=== PATIENT | male | born 1990 | race Two or more races ===

== ENCOUNTER 2017-10-23 14:50 | Emergency (ER) | payer BC ==
--- NOTE | 2017-10-23 15:22 | EDM.PDOC ---
ED HPI GENERAL MEDICAL PROBLEM - General Chief Complaint: ENT Problem Stated Complaint: NOSE INJURY Time Seen by Provider: 10/23/17 15:15 Source of Information: Reports: Patient History Limitations: Reports: No Limitations - History of Present Illness INITIAL COMMENTS - FREE TEXT/NARRATIVE: 27-year-old male presents for evaluation and treatment and injury to the nose. Injury occurred about one half prior to arrival in the ER. Patient is plain Basketball. States that a another player hit him in the face with an open palm. He reports the nose bled initially but is controlled upon arrival to the ER. He is denying any other trauma. No head trauma. No headache, nausea or vomiting. He denies any pain to the orbits. Patient reports he received has broken his nose in the past. Has not seen ear, nose and throat for his nasal bone injury. Reports he is previously had trouble breathing on the left side of his nose but after the trauma today states this has since improved. Onset: Today Location: Reports: Face Nose Pain Score (Numeric/FACES): 1 - Related Data Allergies Allergy/AdvReac Type Severity Reaction Status Date / Time No Known Allergies Allergy Verified 10/23/17 15:11 Home Meds: Home Meds . [No Known Home Meds] 10/23/17 [History] Past Medical History HEENT History: Reports: Other (See Below) Other HEENT History: fractured nose Social & Family History - Tobacco Use Smoking Status *Q: Never Smoker - Caffeine Use Caffeine Use: Reports: Coffee, Energy Drinks - Recreational Drug Use Recreational Drug Use: No ED ROS ENT - Review of Systems Review Of Systems: See Below HEENT: Reports: Nosebleed, Nose Pain GI/Abdominal: Denies: Nausea, Vomiting Musculoskeletal: Denies: Neck Pain Neurological: Denies: Headache ED EXAM, ENT - Physical Exam Exam: See Below Exam Limited By: No Limitations General Appearance: Alert, WD/WN, No Apparent Distress Eye Exam: Bilateral Eye: EOMI, Normal Inspection, PERRL Ears: Normal External Exam Nose: Nasal Deformity, Nasal Swelling, Nasal Tenderness (right nasal bone), Septal Deformity (deviation to the left). No: Septal Hematoma, Active Bleeding Mouth/Throat: Normal Inspection, Normal Oropharynx, Normal Teeth Head: Atraumatic, Normocephalic, Facial Swelling (nose). No: Facial Ecchymosis , Sinus Tenderness Neck: Normal Inspection Respiratory/Chest: No Respiratory Distress, Lungs Clear, Normal Breath Sounds Cardiovascular: Normal Peripheral Pulses, Regular Rate, Rhythm, No Murmur Neurological: Alert, Oriented, Normal Cognition Psychiatric: Normal Affect, Normal Mood Skin: Warm, Dry, Normal Color. No: Ecchymosis Course - Vital Signs Last Recorded V/S: Last Vital Signs Temp 98.9 F 10/23/17 15:10 Pulse 85 10/23/17 15:10 Resp 20 10/23/17 15:10 BP 131/90 10/23/17 15:10 Pulse Ox 98 10/23/17 15:10 - Orders/Labs/Meds Orders: Active Orders 24 hr Category Date Time Status Nasal Bone Min 3V [CR] Stat Exams 10/23/17 15:22 Taken - Radiology Interpretation Free Text/Narrative:: X-ray of the nasal bones shows no fracture of the nasal bone. Deviated septum with likely break. Formal radiology read pending. - Re-Assessments/Exams Free Text/Narrative Re-Assessment/Exam: 10/23/17 16:34 I reviewed the x-ray with the patient. I am recommending follow-up with ear, nose and throat is his quite a deviated septum. Possible he re broke his septum today. Recommend follow-up with them. In the meantime recommend ice for control of the swelling. Discharge instructions as documented. Departure - Departure Time of Disposition: 16:40 Disposition: Home, Self-Care 01 Condition: Good Clinical Impression: Deviated nasal septum, Fracture of nasal septum - Discharge Information *PRESCRIPTION DRUG MONITORING PROGRAM REVIEWED*: No *COPY OF PRESCRIPTION DRUG MONITORING REPORT IN PATIENT GISELLA: No Instructions: Deviated Septum, Nasal Fracture Referrals: PCP,None [Primary Care Provider] - Dewey Horvath MD [Ordering Only Provider] - Forms: ED Department Discharge Additional Instructions: Ice the nose as much as possible. [id number] Tylenol or Motrin as needed for pain. Follow up with ear nose and throat this week. Recommend Dr. Horvath or Dr. Chavez in [place]. Call [phone] Horvath. Call . Avoid activities that could cause reinjury to the nose. Please return to the ER if your symptoms change or worsen. - My Orders Last 24 Hours: My Active Orders 10/23/17 15:22 Nasal Bone Min 3V [CR] Stat - Assessment/Plan Last 24 Hours: My Active Orders 10/23/17 15:22 Nasal Bone Min 3V [CR] Stat
== END 2017-10-23 16:50 | disposition home or self-care (01) ==
LOC: JD.ED 14:50
DX: S02.2XXA Fracture of nasal bones, initial encounter for closed fracture (principal); J34.2 Deviated nasal septum; W50.0XXA Accidental hit or strike by another person, initial encounter; Y93.67 Activity, basketball
CPT/HCPCS: 70160; 99283; 99284

== ENCOUNTER 2017-10-25 21:25 | Emergency (ER) | payer BC ==
--- NOTE | 2017-10-25 22:22 | EDM.PDOC ---
ED HPI GENERAL MEDICAL PROBLEM - General Chief Complaint: Head Injury Stated Complaint: HIT IN NOSE WITH BASKETBALL DISORRIENTED CONFUSED Time Seen by Provider: 10/25/17 21:41 Source of Information: Reports: Patient History Limitations: Reports: No Limitations - History of Present Illness INITIAL COMMENTS - FREE TEXT/NARRATIVE: Patient is a 27-year-old male who presents ED complaining of confusion, short- term memory loss, and feeling foggy at times. States he was hit in the nose while playing basketball this past Tuesday. He was evaluated in ED and x-ray of his nose obtained. He was diagnosed with a nasal fracture. Patient states later that evening he became nauseated and had a 2 episodes of emesis with a headache. States the headache and nausea improved. Does not recall all events that took place on Tuesday. States yesterday he had no significant symptoms. Just a faint headache. Today he went to work and noted there was some times where during conversation he would forget what he was talking about. He's only had a slight headache today. He's worked out the last 2 days with no increase headache noted. There's been no vision changes, nausea vomiting, focal neurological deficits, gait after maladies, or any additional complaints. He is concerned he has a concussion. Patient notes only 1 concussion in the past. That episode was more severe. face/nose Pain Score (Numeric/FACES): 1 - Related Data Allergies Allergy/AdvReac Type Severity Reaction Status Date / Time No Known Allergies Allergy Verified 10/25/17 21:39 Home Meds: Home Meds . [No Known Home Meds] 10/23/17 [History] Past Medical History - Past Health History Medical/Surgical History: Denies Medical/Surgical History HEENT History: Reports: Other (See Below) Other HEENT History: fractured nose Social & Family History - Family History Family Medical History: Noncontributory - Tobacco Use Smoking Status *Q: Never Smoker - Caffeine Use Caffeine Use: Reports: Energy Drinks, Soda - Recreational Drug Use Recreational Drug Use: No ED ROS GENERAL - Review of Systems Review Of Systems: ROS reveals no pertinent complaints other than HPI. ED EXAM, HEAD INJURY - Physical Exam Exam: See Below Exam Limited By: No Limitations General Appearance: Alert, WD/WN, No Apparent Distress Head: Atraumatic, Normocephalic Nexus Criteria: No: Posterior, Midline Cervical Tenderness, Evidence of Intoxication, Altered Level of Consciousness, Focal Neurological Deficit, Painful Distraction Injuries Eyes: Bilateral Eye: EOMI, Normal Inspection, Nystagmus (None noted), PERRL, Vision Changes (None noted per patient) Ears: Hearing Grossly Normal Nose: Normal Inspection Throat/Mouth: Normal Inspection, Normal Oropharynx, Normal Voice, No Airway Compromise Neck: Non-Tender, Full Range of Motion, Normal Alignment, Normal Inspection Respiratory: No Respiratory Distress, Lungs Clear, Normal Breath Sounds, No Accessory Muscle Use Cardiovascular: Normal Peripheral Pulses, Regular Rate, Rhythm, No Murmur Extremities: Normal Inspection Neurologic: e learning specialist II-XII nml As Tested, No Motor/Sensory Deficits, Alert, Normal Mood/Affect, Oriented x 3, Other (Pupils are reactive to light, EOMs intact, no nystagmus noted. No facial droop, slurred speech, difficulty walking, weakness discrepancy as to the upper and lower extremities, sensory/motor deficits, or unsteady gait. Cerebellar and finger to nose are intact. Romberg is intact as well.) Skin: Normal Color, Warm/Dry Course - Vital Signs Last Recorded V/S: Last Vital Signs Temp 96.6 F 10/25/17 21:36 Pulse 88 10/25/17 21:36 Resp 18 10/25/17 21:36 BP 128/82 10/25/17 21:36 Pulse Ox 99 10/25/17 21:36 - Re-Assessments/Exams Free Text/Narrative Re-Assessment/Exam: On examination there is no concerning findings. Patient states there has been some slight confusion and short-term memory loss noted over the past 2 days. He is concerned he may have a concussion. Of note patient has been working out for the past 2 days with no increase headache, nausea/vomiting, and/or focal neurological deficits. He has a history of concussion in the past times one that was more severe. Do not believe CT of the head will be beneficial at this point. He's withstood the test of time. Patient refuses to have a CT of the head obtained as well. He presents to the ED with no focal neurological deficits , headache is slight, no repetitive vomiting, no vision changes, or any concerning findings. Believe the patient has a concussion and thus he'll be discharged home with instructions for concussion, postconcussion syndrome, and return to sporting activities instructions. He does have an appointment scheduled tomorrow with a primary care provider here locally for reevaluation. His return to work status will be based on that examination. Patient had no further questions concerns and agreed with treatment plan. The patient remained hemodynamically stable while under my care in the E.D. I discussed the concerning symptoms for which to returnto the E.D. with the patient. The patient verbalized understanding. All questions were answered. Departure - Departure Time of Disposition: 22:19 Disposition: Home, Self-Care 01 Condition: Good Clinical Impression: Concussion with no loss of consciousness - Discharge Information Instructions: Concussion, Adult, Post-Concussion Syndrome, Returning to Sports and Activities After a Concussion, Adult Referrals: PCP,Unknown [Primary Care Provider] - Forms: ED Department Discharge, ED Return to Work/School Form Additional Instructions: Suspect he had a concussion with history of intermittent short term memory loss and confusion. Please read the details instructions on concussion, postconcussion syndrome, and returning to sport activities following a concussion. Suggest 1 week of brain rest. This includes no texting, reading, watching TV, playing video games, alcohol use, and/or participating in any exertional activities. More you follow instructions early on the shorter the duration of symptoms and the severity. Keep appointment as scheduled for tomorrow with a primary care provider for reevaluation. May use Tylenol 650 mg every 6 hours for headache. Please return back to the ED if you develop any new or worsening symptoms as discussed.
== END 2017-10-25 22:28 | disposition home or self-care (01) ==
LOC: JD.ED 21:25
DX: S06.0X0A Concussion without loss of consciousness, initial encounter (principal); S02.2XXA Fracture of nasal bones, initial encounter for closed fracture; W21.05XA Struck by basketball, initial encounter
CPT/HCPCS: 99283; 99284

== ENCOUNTER 2022-08-24 09:32 | Emergency (ER) | payer BC ==
[2022-08-24] MEDS ORDERED: Ketorolac 60 MG/2 ML SDV IM ONE (09:59)
== END 2022-08-24 10:28 | disposition home or self-care (01) ==
LOC: JD.ED 09:32
DX: M54.50 Low back pain, unspecified (principal); X50.1XXA Overexertion from prolonged static or awkward postures, initial encounter; Y93.67 Activity, basketball
CPT/HCPCS: 96372; 99283; J1885